=== PATIENT | male | born 1985 | race Caucasian/White ===

== ENCOUNTER 2019-05-30 11:26 | Emergency (ER) | payer OTHER ==
[~2019-05-30] VITALS: Ht 170.2 cm; Wt 106.8 kg
[2019-05-30] MEDS ORDERED: TIVI1TAB PO (11:53)
[2019-05-30] MEDS ORDERED: CITA40TA6 PO (11:53)
[2019-05-30] MEDS ORDERED: GABA600T4 PO (11:53)
[2019-05-30] MEDS ORDERED: DISCOVY PO (11:53)
[2019-05-30] MEDS ORDERED: [UNRECOGNIZED DRUG - CODE] IV (11:53)
[2019-05-30] MEDS ORDERED: BACT800T5 PO (11:53)
[2019-05-30] MEDS ORDERED: KETOROLAC 60 MG/2 ML VIAL (J1885) IM ONE (12:30)
[2019-05-30 13:12] LABS: HEMATOCRIT 44.8 % (42.0-52.0); HEMOGLOBIN 15.6 g/dl (13.5-17.5); MEAN CORPUSCULAR HEMOGLOBIN 27.8 pg (27.0-33.0); MEAN CORPUSCULAR HGB CONC 34.8 g/dl (32.0-36.5); MEAN CORPUSCULAR VOLUME 79.7 fl (80.0-96.0); RED BLOOD COUNT 5.62 10^6/uL (4.30-6.10); WHITE BLOOD COUNT 5.2 10^3/uL (4.0-10.0)
[2019-05-30 13:27] LABS: PLATELET COUNT, AUTOMATED 6 10^3/uL (150-450)
[2019-05-30 13:31] LABS: ERYTHROCYTE SEDIMENTATION RATE 5 mm/hr (0-15)
[2019-05-30 14:37] VITALS: BP 141/94
--- NOTE | 2019-05-31 07:09 | REP ---
SOFT-TISSUE ULTRASOUND BUTTOCKS: 05/30/2019. Clinical history: Tender and swollen region about the right buttock. Evaluate for abscess in the gluteal crease. Findings: Sonographic evaluation of the buttocks in the midline and towards the right where he has pain showed a complex fluid collection 1.9 x 1.2 x 0.9 cm. There is some internal debris and echogenic shadowing. Impression: 1. 1.9 x 1.2 x 0.9 cm abscess in the right buttock at the gluteal cleft region where scanned. This is just 2.6 mm below the skin. Electronically Signed by Silas Knight MD 05/31/2019 09:14 A
== END 2019-05-30 14:54 | disposition home or self-care (01) ==
LOC: M ED 11:26
DX: L05.91 Pilonidal cyst without abscess (principal); D69.3 Immune thrombocytopenic purpura; I10 Essential (primary) hypertension; B20 Human immunodeficiency virus [HIV] disease; Z79.899 Other long term (current) drug therapy; Z88.5 Allergy status to narcotic agent; Z91.040 Latex allergy status; Z91.048 Other nonmedicinal substance allergy status; F17.210 Nicotine dependence, cigarettes, uncomplicated
CPT/HCPCS: 36415; 76882; 85027; 85049; 85055; 85652; 86140; 87040; 96372; 99283; J1885

== ENCOUNTER 2019-07-27 22:30 | Emergency (ER) | payer OTHER ==
[~2019-07-27] VITALS: Ht 170.2 cm; Wt 104.5 kg
[~2019-07-27 22:30] MED LIST: BACT800T5 PO; CITA40TA6 PO; DISCOVY PO; GABA600T4 PO; TIVI1TAB PO; [UNRECOGNIZED DRUG - CODE] IV
[2019-07-27] MEDS ORDERED: SULF1TAB93 (22:36)
[2019-07-28] MEDS ORDERED: PRAV20TA2 (00:05)
[2019-07-28] MEDS ORDERED: BIKT1TAB (00:05)
[2019-07-28] MEDS ORDERED: FLUTISP (00:05)
[2019-07-28] MEDS ORDERED: ACETAMINOPHEN 500 MG TAB PO ONE (00:45)
[2019-07-28 00:47] LABS: BASO % 0.3 % (0.0-1.0); EOS # 0.1 10^3/uL (0.0-0.5); EOS % 1.8 % (0.0-3.0); HEMATOCRIT 43.3 % (42.0-52.0); HEMOGLOBIN 14.4 g/dl (13.5-17.5); LYMPH # 1.3 10^3/uL (1.5-5.0); LYMPH % 19.1 % (24.0-44.0); MEAN CORPUSCULAR HEMOGLOBIN 28.2 pg (27.0-33.0); MEAN CORPUSCULAR HGB CONC 33.3 g/dl (32.0-36.5); MEAN CORPUSCULAR VOLUME 84.7 fl (80.0-96.0); MONO # 0.6 10^3/uL (0.0-0.8); MONO % 9.3 % (0.0-5.0); NEUTROPHILS # 4.7 10^3/uL (1.5-8.5); NEUTROPHILS % 68.6 % (36.0-66.0); RED BLOOD COUNT 5.11 10^6/uL (4.30-6.10); WHITE BLOOD COUNT 6.8 10^3/uL (4.0-10.0)
[2019-07-28 01:17] LABS: PLATELET COUNT, AUTOMATED 7 10^3/uL (150-450)
[2019-07-28 01:49] VITALS: BP 135/91
== END 2019-07-28 01:51 | disposition home or self-care (01) ==
LOC: M ED 22:30
DX: L02.31 Cutaneous abscess of buttock (principal); D69.3 Immune thrombocytopenic purpura; F41.9 Anxiety disorder, unspecified; F32.9 Major depressive disorder, single episode, unspecified; K21.9 Gastro-esophageal reflux disease without esophagitis; B20 Human immunodeficiency virus [HIV] disease; F17.210 Nicotine dependence, cigarettes, uncomplicated; Z88.5 Allergy status to narcotic agent; Z91.040 Latex allergy status; Z91.048 Other nonmedicinal substance allergy status; Z79.899 Other long term (current) drug therapy; Z79.2 Long term (current) use of antibiotics